=== PATIENT | female | born 1955 | race Caucasian/White ===

== ENCOUNTER 2024-01-29 20:30 | Emergency (ER) | payer OTHER, BC ==
--- NOTE | 2024-01-29 21:17 | RAD REPORT ---
EXAM DESCRIPTION: CT - Abdomen Pelvis Wo Contrast - 01/29/2024 9:04 pm CLINICAL HISTORY: Abdominal pain COMPARISON: None TECHNIQUE: Computed axial tomography of the abdomen and pelvis was obtained. IV and oral contrast we re not requested. All CT scans are performed using dose optimization technique as appropriate and may include automated exposure control or mA/KV adjustment according to patient size. FINDINGS: The evaluation of solid organs, vessels and bowel is limited secondary to the lack of con trast administration. The liver, spleen, pancreas, adrenals and kidneys appear grossly normal. There is no evidence of diverticulitis. No adnexal mass Moderate amount stool throughout the colon. Scoliosis involves spine Mild anterior subluxation L5 on S1 with disc space narrowing Mild thickening of subcutaneous tissue periumbilical region may be related to recent surgery. No flui d collection IMPRESSION: Moderate amount of stool throughout the colon
--- NOTE | 2024-01-29 21:23 | EDPHYS ---
Physician Documentation [facility] Name: Gill Phillips Age: 68 yrs Sex: Female : 1955 Arrival Date: 01/29/2024 Time: 20:30 Bed 12 Private MD: MARGARITO Physician Jimbo Antonio HPI: 01/28 21:45 This 68 yrs old Female presents to ER via Ambulatory with complaints of Post Surgical kb Pain. 21:45 Pt is a 68 year old female who presents for left abd pain that started suddenly [employer] and kb has gotten better. Denies n/v/d, fever. Caregiver states pt had a hernia repair on 01/17/24 and didn't have a bowel movement for the first 5 days post op. States pt had 2 small bowel movements this morning. Historical: - Allergies: 20:40 PENICILLINS; ss - PMHx: 20:40 Hypertensive disorder; ss 20:45 Bipolar disorder; Anxiety; Depressive disorder; ss - PSHx: 20:40 hernia; ss - Immunization history:: Client reports receiving the 2nd dose of the Covid vaccine. - Infectious Disease History:: Denies. - Social history:: Smoking status: Patient/guardian denies using tobacco, but has a distant history of tobacco abuse. ROS: 21:43 Constitutional: As per HPI kb Exam: 21:43 Constitutional: This is a well developed, well nourished patient who is awake, alert, kb and in no acute distress. Head/Face: Normocephalic, atraumatic. ENT: Moist Mucous membranes Cardiovascular: Regular rate Respiratory: Respirations even and unlabored. No increased work of breathing. Talking in full sentences Abdomen/GI: Soft, non-tender. No distention Skin: Warm, dry with normal turgor. Normal color. MS/ Extremity: Pulses equal, no cyanosis. Neurovascular intact. Full, normal range of motion. Neuro: Awake and alert, GCS 15, oriented to person, place, time, and situation. Moves all extremities. Normal gait. Vital Signs: 20:38 BP 134 / 86; Pulse 66; Resp 16; Temp 97.8(TE); Pulse Ox 100% on R/A; Weight 44 kg; ss Height 4 ft. 11 in. ; Pain 3/10; 20:38 Body Mass Index 19.59 (44.00 kg, 149.86 cm) ss 20:38 Pain Scale: Adult ss MDM: 20:38 Patient medically screened. kb 21:43 Differential diagnosis: post surgical infection, bowel obstruction, constipation, kb nonspecific abd pain. Data reviewed: vital signs, nurses notes. Test considered but Not performed: Labs: cbc, cmp considered but pt was acute in onset just [employer] and is getting better. Pt has had no n/v/d, fever. Historians other than the Patient: Healthcare Power of Boiler Room Operator: POA/caregiver. Counseling: I had a detailed discussion with the patient and/or guardian regarding the historical points, exam findings, and any diagnostic results supporting the discharge/admit diagnosis, the need for outpatient follow up, a family practitioner, to return to the emergency department if symptoms worsen or persist or if there are any questions or concerns that arise at home. 01/28 20:48 Order name: CT Abd/Pelvis - Without Contrast; Complete Time: 21:18 kb Administered Medications: No medications were administered Disposition Summary: 01/29/24 21:22 Discharge Ordered Notes: Location: Home kb Condition: Stable kb Diagnosis - Constipation kb Followup: kb - With: Emergency Department - When: As needed - Reason: Worsening of condition Followup: kb - With: Private Physician - When: 2 - 3 days - Reason: Recheck today's complaints, Continuance of care, Re-evaluation by your physician Discharge Instructions: - Discharge Summary Sheet kb - Constipation, Adult, Mopj-on-[id number] kb Forms: - Medication Reconciliation Form kb - Antibiotic Education kb - Prescription Opioid Use kb - Patient Portal Instructions kb - Leadership Thank You Letter kb Signatures: Dispatcher [employer] Jessica Jj, DAMI RODRIGUEZ-Mellissa Lee, RN RN ss
--- NOTE | 2024-01-29 21:23 | ER ---
Nurse's Notes [facility] Name: Gill Phillips Age: 68 yrs Sex: Female : 1955 Arrival Date: 01/29/2024 Time: 20:30 Bed 12 Private MD: Diagnosis: Constipation Presentation: 01/28 20:38 Chief complaint: Patient states: hernia repair by Dr. Presley on 01/17/24. Pt reports ss she was having a sudden onset of L sided abd pain where one of her incisions was and began having trouble breathing during that episode, but on the way here it got much better. Coronavirus screen: Client denies travel out of the [place] in the last 14 days. Ebola Screen: Patient denies exposure to infectious person. Patient denies travel to an Ebola-affected area in the 21 days before illness onset. Initial Sepsis Screen: Does the patient meet any 2 criteria? No. Patient's initial sepsis screen is negative. Does the patient have a suspected source of infection? No. Patient's initial sepsis screen is negative. Risk Assessment: Do you want to hurt yourself or someone else? Patient reports no desire to harm self or others. Onset of symptoms was January 29, 2024. 20:38 Method Of Arrival: Ambulatory ss 20:38 Acuity: FLAVIO 3 ss Triage Assessment: 20:44 General: Appears in no apparent distress. comfortable, Behavior is calm, cooperative. ss Neuro: Level of Consciousness is awake, alert, obeys commands. Derm: Skin temperature is warm. Historical: - Allergies: 20:40 PENICILLINS; ss - PMHx: 20:40 Hypertensive disorder; ss 20:45 Bipolar disorder; Anxiety; Depressive disorder; ss - PSHx: 20:40 hernia; ss - Immunization history:: Client reports receiving the 2nd dose of the Covid vaccine. - Infectious Disease History:: Denies. - Social history:: Smoking status: Patient/guardian denies using tobacco, but has a distant history of tobacco abuse. Screenin:38 Abuse screen: Denies threats or abuse. Denies injuries from another. Nutritional ss screening: No deficits noted. Tuberculosis screening: Never had TB. Assessment: 20:38 General: Appears in no apparent distress. comfortable, Behavior is calm, cooperative. ss Neuro: Level of Consciousness is awake, alert, obeys commands. Cardiovascular: Capillary refill < 3 seconds is brisk in bilateral fingers. Respiratory: Airway is patent Respiratory effort is even, unlabored, Respiratory pattern is regular, symmetrical. GI: Abdomen is non-distended. EENT: Nares are clear Throat is clear. Derm: Skin is pink, warm \T\ dry. normal. 20:43 Reassessment: Pt ambulated to restroom in ER lobby from triage with steady gait. ss 22:02 Reassessment: Patient appears in no apparent distress at this time. Patient and/or ss family updated on plan of care and expected duration. Pain level reassessed. Vital Signs: 20:38 BP 134 / 86; Pulse 66; Resp 16; Temp 97.8(TE); Pulse Ox 100% on R/A; Weight 44 kg; ss Height 4 ft. 11 in. ; Pain 3/10; 20:38 Body Mass Index 19.59 (44.00 kg, 149.86 cm) ss 20:38 Pain Scale: Adult ss ED Course: 20:34 Patient arrived in ED. [email or web address] 20:37 Jessica Durant FNP-C is PHCP. kb 20:37 Jimbo Antonio MD is Attending Physician. kb 20:38 Patient has correct armband on for positive identification. ss 20:40 Triage completed. ss 20:40 Arm band placed on right wrist. ss 21:06 CT Abd/Pelvis - Without Contrast In Process Unspecified. EDMS 22:02 Mellissa Martines, RN is Primary Nurse. ss 22:04 No provider procedures requiring assistance completed. Patient did not have IV access ss during this emergency room visit. Administered Medications: No medications were administered Medication: 20:38 VIS not applicable for this client. ss Outcome: 21:22 Discharge ordered by MD. kb 22:04 Discharged to home ambulatory, with family, ss 22:04 Condition: good 22:04 Discharge instructions given to patient, family, Instructed on discharge instructions, follow up and referral plans. Demonstrated understanding of instructions, follow-up care, 22:04 Patient left the ED. ss Signatures: Dispatcher [employer] EDMS Jessica Durant FNP-C FNP-Ckb Blanchard, Shelby, RN RN Amanda Montanez [email or web address] Corrections: (The following items were deleted from the chart) 20:46 20:38 Chief complaint: Patient states: hernia repair by Dr. Presley on 01/20/24. Pt ss reports she was having a sudden onset of L sided abd pain where one of her incisions was and began having trouble breathing during that episode, but on the way here it got much better. ss
[2024-01-29 22:41] VITALS: BP 134/86; TEMP 97.8; O2SAT 100
== END 2024-01-29 22:04 | disposition home or self-care (01) ==
LOC: ER 20:30
DX: K59.00 Constipation, unspecified (principal); Z98.890 Other specified postprocedural states
CPT/HCPCS: 74176; 99282